=== PATIENT | female | born 1970 | race Caucasian/White ===

== ENCOUNTER → 2017-09-26 | Outpatient (CLI) | payer OTHER ==
[~2017-09-26] MED LIST: CIPRO500 MG; COLACE100 MG PO; FLAGYL; KLOR-CON 1010 MEQ; NORCO 5-325 TA1 EACH PO; PROBIOTIC1 EAC1; SLOW-MAG64 M1; SYNTHROID125 MCG PO
== END ==
LOC: RAD 12:57
DX: Z12.31 Encounter for screening mammogram for malignant neoplasm of breast (principal)

== ENCOUNTER → 2018-10-16 | Outpatient (CLI) | payer OTHER | LOC: RAD 03:14 | DX: Z12.31 Encounter for screening mammogram for malignant neoplasm of breast (principal) ==

== ENCOUNTER 2018-11-17 19:05 | Inpatient (IN) | payer OTHER ==
[~2018-11-17] VITALS: Ht 162.6 cm; Wt 78.9 kg
[~2018-11-17 19:05] MED LIST changes: -FLAGYL500 M1 PO; -LEVAQUIN 500 M500 M2 PO; -SYNTHROID112 MC1 PO
[2018-11-17 19:09] VITALS: BP 148/86
[2018-11-17] MEDS ORDERED: SYNTHROID112 MC1 PO ×2 (19:49)
[2018-11-17] MEDS ORDERED: FLAGYL500 M1 PO ×2 (19:50)
[2018-11-17] MEDS ORDERED: LEVAQUIN 500 M500 M2 PO ×2 (19:50)
[2018-11-17 20:33] LABS: ABSOLUTE NEUTROPHILS 10.4 thou/uL (1.4-8.2); BASOPHILS 0.3 % (0.0-2.0); EOSINOPHILS 0.2 % (0.0-3.0); HEMOGLOBIN 13.7 gm/dL (12.0-15.0); LYMPHOCYTES 14.1 % (24.0-44.0); MCH 31.9 pg (26.0-34.0); MCHC 34.4 g/dL (28.0-37.0); MCV 92.8 fL (80.0-100.0); MONOCYTES 7.9 % (1.0-8.0); PLATELET COUNT 271 thou/uL (150-400); POLYS 77.5 % (36.0-66.0); RBC 4.31 mil/uL (4.20-5.00); RDW 12.7 % (10.5-14.5); WBC 13.5 thou/uL (4.0-11.0)
[2018-11-17 20:36] LABS: CALCIUM 9.5 mg/dL (8.5-10.1); CREATININE 0.9 mg/dL (0.6-1.0); POTASSIUM 3.7 mmol/L (3.5-5.1)
[2018-11-17 20:43] LABS: DIRECT BILIRUBIN 0.1 mg/dL (<0.1-0.3); TOTAL BILIRUBIN 0.6 mg/dL (<0.1-1.0); TOTAL PROTEIN 8.7 g/dL (6.4-8.2)
[2018-11-17 21:05] LABS: URINE BILIRUBIN NEGATIVE (Negative); URINE BLOOD 3+ (Negative); URINE CLARITY CLEAR; URINE COLOR YELLOW; URINE GLUCOSE-RANDOM* NEGATIVE (Negative); URINE KETONES 1+ (Negative); URINE LEUKOCYTES-REFLEX NEGATIVE (Negative); URINE NITRITE-REFLEX NEGATIVE (Negative); URINE PROTEIN (DIPSTICK) NEGATIVE (Negative); URINE SPECIFIC GRAVITY 1.015 (1.005-1.035); URINE UROBILINOGEN 0.2 E.U./dl (0.2-1.0)
[2018-11-17 21:15] LABS: BACTERIA-REFLEX 1-9 Few /HPF (None Seen); CASTS None Seen /LPF (None Seen); MUCUS 0-3 Light strn/LPF (None Seen); SQUAMOUS 4-10 Moderate /LPF (0-3); URINE RBC 3-10 Few /HPF (0-2); URINE WBC-REFLEX 0-5 Rare /HPF (0-5)
[2018-11-17 21:16] LABS: CRYSTALS None Seen /LPF (None Seen)
[2018-11-17 22:15] VITALS: BP 129/70
[2018-11-17 22:19] VITALS: BP 129/70
[2018-11-18 04:22] VITALS: BP 115/65
--- NOTE | 2018-11-18 05:40 | NUR ---
Received pt from ED at 2119. Pt resting in bed. VSS. AOX4. Still having abdmn pain. Gave morphine one time. On Room air. IV right AC saline lock. No skin issues. Up at [facility]. On clear liquid. No indications of sepsis. Pt got 1L of fluid in ED. Full code. No identified needs. Will continue to monitor.
[2018-11-18 07:38] VITALS: BP 118/73
[2018-11-18 14:10] VITALS: BP 111/65
[2018-11-18 19:15] VITALS: BP 141/80
--- NOTE | 2018-11-18 19:20 | NUR ---
PT A&OX4, VSS, PAIN IN ABD. PAIN HAS BEEN MANAGED WITH TYLENOL AND MORPHINE. PT HAS RECEIVED INTERMITTENT ANTIBIOTICS. TOLERATING CLEAR LIQUIDS, DENIES N/V. CALL LIGHT WITHIN REACH. WILL CONTINUE TO MONITOR.
--- NOTE | 2018-11-19 03:11 | NUR ---
ASSUMED CARE AROUND 1900. AXOX4. ON IV ATB, PAIN MANAGED PER MD ORDER. C/O NUASEA, TX PER MD ORDER. NO S/S ACUTE DISTRESS NOTED OR REPORTED AT THIS TIME. WILL CONT TO MONITOR FOR ANY CHANGES IN CONDITION.
[2018-11-19 03:30] VITALS: BP 133/85
[2018-11-19 07:30] VITALS: BP 116/62
[2018-11-19 10:38] VITALS: BP 116/62
--- NOTE | 2018-11-19 11:06 | NUR ---
PT DISCHARGED HOME WITH SPOUSE. PT A&OX4, VSS, DENIES PAIN. PT UNDERSTANDS TO FOLLOW UP WITH PRIMARY PHYSICIAN IN TWO WEEKS, DISCHARGE PAPERWORK SIGNED. PT WILL CONTINUE HOME MEDICATION. ALL BELONGINGS WITH PT.
== END 2018-11-19 11:57 | disposition home or self-care (01) | DRG 872 ==
LOC: ER 19:05 → EROBS 21:55 → 4W 22:19
PROVIDERS: Emergency Medicine; ADMIT Internal Medicine
DX: A41.9 Sepsis, unspecified organism (principal); K57.92 Diverticulitis of intestine, part unspecified, without perforation or abscess without bleeding; E03.9 Hypothyroidism, unspecified; Z98.891 History of uterine scar from previous surgery
CPT/HCPCS: 10040

== ENCOUNTER → 2018-11-17 | Outpatient (CLI) | payer OTHER ==
[~2018-11-17] MED LIST changes: +FLAGYL500 M1 PO; +LEVAQUIN 500 M500 M2 PO; +SYNTHROID112 MC1 PO
== END ==
LOC: CAT 09:37
DX: K57.32 Diverticulitis of large intestine without perforation or abscess without bleeding (principal); E78.5 Hyperlipidemia, unspecified; E03.9 Hypothyroidism, unspecified; G47.00 Insomnia, unspecified; F41.9 Anxiety disorder, unspecified; Z79.899 Other long term (current) drug therapy

== ENCOUNTER → 2018-12-14 | Outpatient (CLI) | payer OTHER ==
[~2018-12-14] MED LIST changes: +FLAGYL500 M1 PO; +LEVAQUIN 500 M500 M2 PO; +SYNTHROID112 MC1 PO
== END ==
LOC: ULTRA 07:57
DX: R31.9 Hematuria, unspecified (principal)

== ENCOUNTER → 2019-06-26 | Outpatient (CLI) | payer OTHER | LOC: RAD 08:56 | DX: M18.12 Unilateral primary osteoarthritis of first carpometacarpal joint, left hand (principal); M25.78 Osteophyte, vertebrae; V89.2XXA Person injured in unspecified motor-vehicle accident, traffic, initial encounter ==

== ENCOUNTER → 2019-07-05 | Outpatient (CLI) | payer OTHER | LOC: CAT 10:18 | DX: G44.53 Primary thunderclap headache (principal) ==

== ENCOUNTER → 2019-10-11 | Outpatient (CLI) | payer OTHER | LOC: MRI 09:45 | DX: S13.4XXA Sprain of ligaments of cervical spine, initial encounter (principal); R29.898 Other symptoms and signs involving the musculoskeletal system; R20.0 Anesthesia of skin; M79.603 Pain in arm, unspecified; M47.812 Spondylosis without myelopathy or radiculopathy, cervical region; M50.20 Other cervical disc displacement, unspecified cervical region; X58.XXXA Exposure to other specified factors, initial encounter; Y93.89 Activity, other specified; Y92.89 Other specified places as the place of occurrence of the external cause; Y99.8 Other external cause status ==

== ENCOUNTER → 2019-11-27 | Outpatient (CLI) | payer OTHER | LOC: RAD 09:19 | DX: Z12.31 Encounter for screening mammogram for malignant neoplasm of breast (principal) ==

== ENCOUNTER → 2020-05-12 | Outpatient (CLI) | payer OTHER | LOC: LAB 10:58 | PROVIDERS: ATTEND Nurse Practitioner | DX: U07.1 COVID-19 (principal) ==

== ENCOUNTER → 2020-07-24 | Outpatient (CLI) | payer OTHER | LOC: SJCVCIMAG 08:11 | PROVIDERS: ATTEND Internal Medicine | DX: R07.9 Chest pain, unspecified (principal); Z86.16 Personal history of COVID-19 ==

== ENCOUNTER → 2020-12-09 | Outpatient (CLI) | payer OTHER | LOC: RAD 11:15 | PROVIDERS: ATTEND Nurse Practitioner | DX: Z12.31 Encounter for screening mammogram for malignant neoplasm of breast (principal) ==